=== PATIENT | female | born 1995 | race Caucasian/White ===

== ENCOUNTER 2016-11-04 20:04 | Emergency (ER) | payer OTHER ==
[2016-11-04 20:11] VITALS: RESP 16; O2SAT 97
[2016-11-04 22:01] LABS: COLOR PALE YELLOW; LEUKOCYTE ESTERASE,URINE NEGATIVE (NEGATIVE); NITRITE,URINE NEGATIVE (NEGATIVE)
--- NOTE | 2016-11-04 22:28 | EDPHY ---
H & P Stated Complaint: pelvic pain; has IUD Time Seen by Provider: 11/04/16 21:01 HPI/ROS: CHIEF COMPLAINT: suprapubic pain HISTORY OF PRESENT ILLNESS: 21-year-old female presents emergency department complaining of suprapubic pain that started this last night during intercourse and has progressed throughout the day today. The patient reports the pain is sharp in nature, constant with worsening spikes. Patient denies urinary frequency, urgency or dysuria, no back pain, no blood in her urine. Patient denies upper abdominal pain. Patient denies nausea or vomiting. Patient has an IUD, no history of STDs. Patient does report a mild increase in vaginal discharge, no odor. REVIEW OF SYSTEMS: A comprehensive 10 point review of systems is otherwise negative aside from elements mentioned in the history of present illness. Source: Patient Exam Limitations: No limitations - Personal History LMP (Females 10-55): IUD In Place Current Tetanus/Diphtheria Vaccine: Unsure - Medical/Surgical History Hx Asthma: No Hx Chronic Respiratory Disease: No Hx Diabetes: No Hx Cardiac Disease: No Hx Renal Disease: No Hx Cirrhosis: No Hx Alcoholism: No Hx HIV/AIDS: No Hx Splenectomy or Spleen Trauma: No Other PMH: PMHx: denies. PSHx: appendectomy - Social History Smoking Status: Current some day smoker - Physical Exam Exam: Physical Exam Gen: Alert and Oriented, NAD HEENT: PERRL, moist mucous membranes NECK: no meningismus CV: regular rate and regular rhythm PULM: CTAB, no wheezes ABDOMEN: Diffuse moderate suprapubic tenderness to palpation, right and left lower quadrant tenderness to palpation Pelvic exam: The vulva was normal no lesions. The vagina had a mild amount of white discharge. The cervix was closed no bleeding and no purulent drainage. The uterus was normal size and non tender. The adnexa had no masses and no tenderness. The exam was performed with a arts and sciences dean. BACK: No CVA tenderness NEURO: Neurologically grossly intact EXTREMITIES: normal appearing SKIN: no rash or break in skin on exposed skin PSYCH: answers questions appropriately. Constitutional: Initial Vital Signs Temperature (C) 37.2 C 11/04/16 20:08 Heart Rate 86 11/04/16 20:08 Respiratory Rate 16 11/04/16 20:08 Blood Pressure 123/66 H 11/04/16 20:08 O2 Sat (%) 97 11/04/16 20:08 O2 Delivery Mode Room Air Allergies/Adverse Reactions: No Known Allergies Allergy (Unverified 01/22/14 12:28) Home Medications: Medication Instructions Recorded NK [No Known Home Meds] 11/04/16 Medical Decision Making - Diagnostics Imaging Results: Imaging Impressions Pelvic/Renal Ultrasound 11/04/16 21:03 Impression: 1. Appropriately-positioned intrauterine device. 2. Moderate amount of free fluid in the pelvic cul-de-sac. 3. There is no evidence of ovarian torsion. Findings were discussed with Annika Sommer NP at 23:58, on 11/04/2016. . Imaging: Discussed imaging studies w/ scallop binder Radiologist ED Course/Re-evaluation: IV established, CBC, chemistry panel, urinalysis, test ordered, pelvic ultrasound ordered. CBC with a mildly elevated white blood cell count at 13,000, urinalysis is negative, test is negative. Pelvic ultrasound shows a moderate amount of free fluid in the pelvis, no other abnormalities. The patient likely has ruptured ovarian cyst. Patient has no evidence of PID on pelvic exam. Chlamydia and gonorrhea are pending. Differential Diagnosis: The differential diagnosis for the patient's abdominal pain included but was not limited to ovarian cyst, pelvic inflammatory disease, ovarian torsion, urinary tract infection, ectopic , cholecystitis, and appendicitis. - Data Points Laboratory Results: Laboratory Results 11/04/16 23:31 11/04/16 23:31 11/05/16 11/05/16 11/04/16 00:15 00:15 23:31 WBC RBC Hgb Hct MCV MCH MCHC RDW Plt Count MPV Neut % (Auto) Lymph % (Auto) [place] % (Auto) Eos % (Auto) Baso % (Auto) Nucleat RBC Rel Count Absolute Neuts (auto) Absolute Lymphs (auto) Absolute Monos (auto) Absolute Eos (auto) Absolute Basos (auto) Absolute Nucleated RBC Immature Gran % Immature Gran # Sodium Potassium Chloride Carbon Dioxide Anion Gap BUN Creatinine Estimated GFR Glucose Calcium Beta HCG, Qual NEGATIVE Urine Color Urine Appearance Urine pH Ur Specific [place] Urine Protein Urine Ketones Urine Blood Urine Nitrate Urine Bilirubin Urine Urobilinogen Ur Leukocyte Esterase Urine Glucose Trichomonas (Wet Prep) Pending C.trachomatis RNA (TMA) Pending N.gonorrhoeae RNA (TMA) Pending 11/04/16 11/04/16 11/04/16 23:31 23:31 21:00 WBC 13.97 10^3/uL H 10^3/uL (3.80-9.50) RBC 4.36 10^6/uL 10^6/uL (4.18-5.33) Hgb 13.8 g/dL g/dL (12.6-16.3) Hct 38.6 % % (38.0-47.0) MCV 88.5 fL fL (81.5-99.8) MCH 31.7 pg pg (27.9-34.1) MCHC 35.8 g/dL g/dL (32.4-36.7) RDW 12.0 % % (11.5-15.2) Plt Count 293 10^3/uL 10^3/uL (150-400) MPV 9.2 fL fL (8.7-11.7) Neut % (Auto) 68.0 % % (39.3-74.2) Lymph % (Auto) 24.8 % % (15.0-45.0) [place] % (Auto) 5.9 % % (4.5-13.0) Eos % (Auto) 0.5 % L % (0.6-7.6) Baso % (Auto) 0.4 % % (0.3-1.7) Nucleat RBC Rel Count 0.0 % % (0.0-0.2) Absolute Neuts (auto) 9.50 10^3/uL H 10^3/uL (1.70-6.50) Absolute Lymphs (auto) 3.46 10^3/uL H 10^3/uL (1.00-3.00) Absolute Monos (auto) 0.83 10^3/uL H 10^3/uL (0.30-0.80) Absolute Eos (auto) 0.07 10^3/uL 10^3/uL (0.03-0.40) Absolute Basos (auto) 0.05 10^3/uL 10^3/uL (0.02-0.10) Absolute Nucleated RBC 0.00 10^3/uL 10^3/uL (0-0.01) Immature Gran % 0.4 % % (0.0-1.1) Immature Gran # 0.06 10^3/uL 10^3/uL (0.00-0.10) Sodium 138 mEq/L mEq/L (134-144) Potassium 3.5 mEq/L mEq/L (3.5-5.2) Chloride 105 mEq/L mEq/L (97-110) Carbon Dioxide 20 mEq/l L mEq/l (22-31) Anion Gap 13 mEq/L mEq/L (8-16) BUN 8 mg/dL mg/dL (7-23) Creatinine 0.7 mg/dL mg/dL (0.6-1.0) Estimated GFR > 60 Glucose 79 mg/dL mg/dL (70-100) Calcium 9.4 mg/dL mg/dL (8.5-10.4) Beta HCG, Qual Urine Color PALE YELLOW Urine Appearance CLEAR Urine pH 6.0 (5.0-7.5) Ur Specific [place]ye 1.009 (1.002-1.030) Urine Protein NEGATIVE (NEGATIVE) Urine Ketones NEGATIVE (NEGATIVE) Urine Blood NEGATIVE (NEGATIVE) Urine Nitrate NEGATIVE (NEGATIVE) Urine Bilirubin NEGATIVE (NEGATIVE) Urine Urobilinogen NEGATIVE EU EU (0.2-1.0) Ur Leukocyte Esterase NEGATIVE (NEGATIVE) Urine Glucose NEGATIVE (NEGATIVE) Trichomonas (Wet Prep) C.trachomatis RNA (TMA) N.gonorrhoeae RNA (TMA) Departure - Departure Disposition: Home, Routine, Self-Care Clinical Impression: Suprapubic abdominal pain Condition: Good Instructions: Hydrocodone/Acetaminophen (By mouth), Pelvic Pain in Women (ED) Additional Instructions: Rest, take 600 mg of ibuprofen every 8 hours with food for 3-5 days, take [place] for severe pain, warm compresses to your abdomen. Follow up with OBGYN listed at 1st available appointment, call in the morning to schedule this. Return to the emergency department for worsening symptoms, new symptoms or concerns. Referrals: Inga Dorantes DO [Doctor of Osteopathy] - As per Instructions (obgyn chain person )
[2016-11-04 23:40] LABS: % IMMATURE GRANULYOCYTES 0.4 % (0.0-1.1); ABSOLUTE IMMATURE GRANULOCYTES 0.06 10^3/uL (0.00-0.10); ADD DIFF? NO; ADD MORPH? NO; ADD SCAN? NO; ATYPICAL LYMPHOCYTE FLAG 0 (0-99); FRAGMENT RBC FLAG 0 (0-99); HEMATOCRIT 38.6 % (38.0-47.0); HEMOGLOBIN 13.8 g/dL (12.6-16.3); LEFT SHIFT FLG 0 (0-99); LIPEMIA HEMOLYSIS FLAG 90 (0-99); MEAN CELL HEMOGLOBIN 31.7 pg (27.9-34.1); MEAN CELL HEMOGLOBIN CONCENTR. 35.8 g/dL (32.4-36.7); MEAN CELL VOLUME 88.5 fL (81.5-99.8); MEAN PLATELET VOLUME 9.2 fL (8.7-11.7); PLATELET CLUMPS FLAG 0 (0-99); PLATELET COUNT 293 10^3/uL (150-400); RED BLOOD CELL COUNT 4.36 10^6/uL (4.18-5.33)
[2016-11-04 23:53] LABS: ANION GAP 13 mEq/L (8-16); CALCIUM 9.4 mg/dL (8.5-10.4); CARBON DIOXIDE 20 mEq/l (22-31); CHLORIDE 105 mEq/L (97-110); CREATININE 0.7 mg/dL (0.6-1.0); GLOMERULAR FILTRATION RATE > 60; GLUCOSE 79 mg/dL (70-100); POTASSIUM 3.5 mEq/L (3.5-5.2); SODIUM 138 mEq/L (134-144)
[2016-11-05] MEDS ORDERED: KETOROLAC 15 MG/1 ML SDV IVP ONE (00:17)
[2016-11-05] MEDS ORDERED: HYDROCOD/APAP 5/325 PREPACK#6 BTL TAKEHOME ONE (00:19)
[2016-11-05 06:41] VITALS: BP 132/74; PULSE 77; TEMP 98.1
[2016-11-05 12:02] LABS: CHLAMYDIA AMPLIFICATION GENPRB NEGATIVE (NEGATIVE)
== END 2016-11-05 00:42 | disposition home or self-care (01) ==
DX: R10.31 Right lower quadrant pain (principal); F17.200 Nicotine dependence, unspecified, uncomplicated; R10.32 Left lower quadrant pain
CPT/HCPCS: 96374; J1885